=== PATIENT | female | born 1990 | race Caucasian/White ===

== ENCOUNTER 2017-12-27 18:12 | Observation (INO) | payer SELFPAY ==
[2017-12-27] MEDS ORDERED: Sodium Chloride 0.9% 10 ML Syringe FLUSH PRN ×2 (18:14)
[2017-12-27] MEDS ORDERED: Diphtheria,Pertussis(Acell),Tetanus Vaccine 0.5 ML Syringe IM ONE (18:14)
[2017-12-27] MEDS ORDERED: Sodium Chloride 0.9% 1,000 ML IV ONE (18:14)
[2017-12-27] MEDS ORDERED: Sodium Chloride 0.9% 2.5 ML Syringe FLUSH PRN ×2 (18:14)
--- NOTE | 2017-12-27 18:21 | EDM.PDOC ---
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 Urine Bacteria (NEGATIVE) Urine HCG, Qual (NEGATIVE) Urine Opiates Screen NEGATIVE (NEGATIVE) Ur Oxycodone Screen NEGATIVE (NEGATIVE) Urine Methadone Screen NEGATIVE (NEGATIVE) Ur Barbiturates Screen NEGATIVE (NEGATIVE) Ur Phencyclidine Scrn NEGATIVE (NEGATIVE) Ur Amphetamine Screen NEGATIVE (NEGATIVE) U Methamphetamines Scrn POSITIVE (NEGATIVE) U Benzodiazepines Scrn NEGATIVE (NEGATIVE) U Cocaine Metab Screen NEGATIVE (NEGATIVE) U Marijuana (THC) Screen NEGATIVE (NEGATIVE) Ethyl Alcohol mg/dL Departure - Departure Time of Disposition: 20:57
[2017-12-27] MEDS ORDERED: Iopamidol 755 MG/ML 500 ML Multipack Bottle IVPUSH ONE (19:21)
[2017-12-27 19:27] LABS: CHLORIDE,CL 102 mmol/L (98-107); SODIUM,NA 140 mmol/L (136-145)
[2017-12-27] MEDS ORDERED: Morphine 10 MG/ML Syringe IVPUSH PRN (21:05)
[2017-12-27] MEDS ORDERED: Ondansetron 4 MG/2 ML SDV IVPUSH PRN (21:05)
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
[2017-12-27] MEDS ORDERED: Lactated Ringers 1,000 ML IV SCH (21:15)
[2017-12-27] MEDS: Acetaminophen/HYDROcodone 325-5 MG Tab PO PRN (21:50)
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
[2017-12-28] MEDS: Acetaminophen/HYDROcodone 325-5 MG Tab PO PRN (08:05)
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
== END 2017-12-28 09:27 | disposition home or self-care (01) ==
LOC: MW.ED 18:12 → MW.MS 21:04
PROVIDERS: ADMIT Surgery; ATTEND Surgery
DX: F10.929 Alcohol use, unspecified with intoxication, unspecified (principal); R41.0 Disorientation, unspecified; V89.2XXA Person injured in unspecified motor-vehicle accident, traffic, initial encounter; Z88.0 Allergy status to penicillin; Y90.9 Presence of alcohol in blood, level not specified
CPT/HCPCS: 36415; 70450; 71045; 71260; 72125; 74177; 80053; 80305; 81001; 81025; 82150; 83690; 84703; 85025; 85610; 90471; 90715; 93005; 96360; 96361; 99285; A9270; G0378; G0480; J7040; J7120; Q9967; 70486-26; 72128-26; 99283